=== PATIENT | female | born 1950 | race Caucasian/White ===

== ENCOUNTER → 2016-10-23 | Outpatient (CLI) | payer OTHER ==
[~2016-10-23] MED LIST: ANTIBIOTIC; BACTRIM DS TAB1 EACH PO; CLARITIN10 MG PO; CLONIDINE HCL0.3 M2 PO; CLONIDINE HCL0.3 M3 PO; COMBIVENT; DILAUDID 2 MG TA2 MG PO; DILAUDID2 M1 PO; FLEXERIL; FLEXERIL PO; METHADONE HCL 110 M1 PO; METHADONE PO; METHADOSE10 MG PO; MOBIC7.5 MG PO; NABUMETONE 500500 M1 PO; NAPROXEN DELAY500 M1 PO; NEURONTIN 300300 M1 PO; NEURONTIN 300M300 M2 PO; NORCO 5-325 TA1 EACH PO; NORTRIPTYLINE H25 M3 PO; NORVASC 5 MG TAB5 MG PO; NORVASC5 M1 PO; PREDNISONE 5 MG5 M1 PO; TRAMADOL 50 MG50 MG PO; VICODIN 5-5001 EACH PO
[2016-10-23 11:37] LABS: CREATININE 0.5 mg/dL (0.6-1.0)
== END ==
LOC: CAT 10:48
PROVIDERS: Nurse Practitioner
DX: R10.9 Unspecified abdominal pain (principal); R14.0 Abdominal distension (gaseous)

== ENCOUNTER 2016-10-27 10:43 | Emergency (ER) | payer OTHER ==
[~2016-10-27] VITALS: Ht 157.5 cm; Wt 56.2 kg
[2016-10-27 11:23] LABS: ABSOLUTE NEUTROPHILS 2.8 thou/uL (1.4-8.2); BASOPHILS 0.6 % (0.0-2.0); HEMATOCRIT 43.3 % (37.0-47.0); HEMOGLOBIN 14.8 gm/dL (12.0-15.0); LYMPHOCYTES 31.8 % (24.0-44.0); MCH 34.2 pg (26.0-34.0); MCHC 34.2 g/dL (28.0-37.0); MONOCYTES 10.1 % (1.0-8.0); PLATELET COUNT 243 thou/uL (150-400); POLYS 56.5 % (36.0-66.0); RBC 4.33 mil/uL (4.20-5.00); RDW 13.6 % (10.5-14.5); WBC 4.9 thou/uL (4.0-11.0)
[2016-10-27 11:31] LABS: MANUAL DIFF NO
[2016-10-27 11:33] LABS: CALCIUM 9.8 mg/dL (8.5-10.1); CREATININE 0.5 mg/dL (0.6-1.0); POTASSIUM 3.8 mmol/L (3.5-5.1)
[2016-10-27 11:37] LABS: ALBUMIN 3.8 g/dL (3.4-5.0); TOTAL BILIRUBIN 0.6 mg/dL (<0.1-1.0); TOTAL PROTEIN 7.9 g/dL (6.4-8.2)
[2016-10-27 11:39] LABS: URINE BILIRUBIN NEGATIVE (Negative); URINE BLOOD NEGATIVE (Negative); URINE COLOR YELLOW; URINE GLUCOSE-RANDOM* NEGATIVE (Negative); URINE KETONES NEGATIVE (Negative); URINE NITRITE NEGATIVE (Negative); URINE PROTEIN (DIPSTICK) NEGATIVE (Negative); URINE SPECIFIC GRAVITY <= 1.005 (1.003-1.035); URINE UROBILINOGEN 0.2 E.U./dl (0.2-1.0)
[2016-10-27] MEDS ORDERED: MIRALAX17 GM PO (12:35)
== END 2016-10-27 12:53 | disposition home or self-care (01) ==
LOC: ER 10:43
PROVIDERS: Physician Assistant
DX: K59.00 Constipation, unspecified (principal); I10 Essential (primary) hypertension; J44.9 Chronic obstructive pulmonary disease, unspecified; F10.99 Alcohol use, unspecified with unspecified alcohol-induced disorder; Z87.39 Personal history of other diseases of the musculoskeletal system and connective tissue; Z98.890 Other specified postprocedural states; Z91.041 Radiographic dye allergy status

== ENCOUNTER → 2016-11-18 | Outpatient (CLI) | payer OTHER ==
[~2016-11-18] VITALS: Ht 157.5 cm; Wt 57.2 kg
[~2016-11-18] MED LIST changes: +AMITRIPTYLINE H10 M3 PO; -COMBIVENT; +COMBIVENT INH; -FLEXERIL; +HYOSCYAMINE0.125 MG PO; +MIRALAX17 GM PO; +NEURONTIN600 MG PO; +VENTOLIN HFA 1818 GM INH; +VITAMIN B-12500 MC5 SL
--- NOTE | ~2016-11-18 | S ---
[facility] [place] [address] SURGICAL PATH RPT PROCEDURE Name: MERY MERCEDES Claude Room #: REG [facility] Sabrina.#: [id number] Admission: 11/18/16 Date of : 52 Discharge: Report #: [id number] Path Case #: [id number] PATHOLOGY REPORT COLLECTION DATE: 11/18/2016 RECEIVED DATE: 11/18/2016 SUBMITTING PHYS: Dr. Arun Nelson OTHER PHYS: Dr. Deon Giraldo SPECIMEN(S) RECEIVED: A.Bx polyp at sigmoid colon x3 * * * * * * * * * * * * FINAL DIAGNOSIS: A. Polyp, at sigmoid colon x3, endoscopic biopsy: - Hyperplastic polyp. - Negative for dysplasia. PATHOLOGIST: Megan Rodas M.D. REPORT ELECTRONICALLY SIGNED BY: Megan Rodas M.D. DATE/TIME: 11/20/2016 15:43 * * * * * * * * * * * * GROSS PATHOLOGY: Received in formalin labeled "Mery Mercedes, BX of polyp sigmoid colon," are 3 segments of godoy soft tissue measuring 1.4 x 0.2 x 0.2 cm in aggregate dimensions and ranging from 0.4 to 0.5 cm in maximum dimension. The specimen is submitted entirely in cassette A1. (GUERO; 11/19/2016) CLINICAL HISTORY: Abdominal pain, celiac, constipation INITIAL CPT CODE(S): A; 54001 Professional services performed by [facility] at [facility] [place] [address] Technical services performed by [facility] at [address] [place] [address], [address], [place] [address]. [facility] [address] [place] [address] SURGICAL PATH RPT PROCEDURE Name: MERY MERCEDES Room #: REG LADY Rush#: [id number] Admission: 11/18/16 Date of : 52 Discharge: Report #: [id number] Path Case #: [id number] [address] PHONE: [phone] DIRECTOR: Leandro Lopez M.D. * * * END OF REPORT * * *
== END | disposition home or self-care (01) ==
LOC: GI 07:37
DX: Z12.11 Encounter for screening for malignant neoplasm of colon (principal); K63.5 Polyp of colon; F32.89 Other specified depressive episodes; F10.10 Alcohol abuse, uncomplicated; F41.8 Other specified anxiety disorders; J44.9 Chronic obstructive pulmonary disease, unspecified; F17.210 Nicotine dependence, cigarettes, uncomplicated; I10 Essential (primary) hypertension; Z98.890 Other specified postprocedural states
CPT/HCPCS: 62110; 62900

== ENCOUNTER 2017-06-29 14:43 | Inpatient (IN) | payer OTHER ==
[~2017-06-29] VITALS: Ht 157.5 cm; Wt 56.7 kg
--- NOTE | ~2017-06-29 | EKG ---
[place] [address] [facility] [place] [address] ELECTROCARDIOGRAM REPORT Name: MARIA INES TEJADA Room #: 353-P ADM IN M.R.#: [id number] Admission: 06/29/17 Attend Phys: Aman Garland DO Discharge: Date of : 52 Report #: [id number] THIS REPORT FOR: //name// [facility] ED Test Date: 2017-06-29 Test Time: 16:32:01 Pat Name: MARIA INES TEJADA Department: Room: [facility] Gender: F Camera Operator: SERAFIN : 1950 Requested By: Denise Mays Order Number: [id number] MD: Nathan Orozco Measurements Intervals [place] Rate: 101 P: 67 [place]: 151 QRS: 63 QRSD: 78 T: 39 QT: 385 QTc: 500 Interpretive Statements Sinus tachycardia Nonspecific ST and T wave abnormality Compared to ECG 08/20/2013 10:45:58 ST and T wave abnormality is now present Electronically Signed On 06-30-2017 9:01:56 SURFACE LAY OUT TECHNICIAN by Nathan Orozco [email or web address] <ELECTRONICALLY SIGNED> By: Nathan Orozco MD, [facility] 06/30/17 0901 163 31 Nathan Orozco MD, [facility] /EPI
--- NOTE | ~2017-06-29 | HC ---
[facility] [place] [address] CONSULTATION Name: MARIA INES TEJADA Room #: 353-P [facility] IN M.R.#: [id number] Admission: 06/29/17 Attend Phys: Aman Garland, Discharge: 07/02/17 Date of : 52 Report #: [id number] THIS REPORT FOR: //name// CC: Deon Garland CHIEF COMPLAINT: Left hip/pelvis pain. HISTORY OF PRESENT ILLNESS: The patient is a pleasant 67-year-old female who was admitted through the Emergency Department at [facility] yesterday for complaints of left hip pain status post fall. The patient reports that she fell twice yesterday, the first time being when she was getting up to answer the door as [employer] brought her food. She was able to yell for help and the solutions delivery consultant was able to come to immediate assistance. EMS was called at that time and they helped her to get back up into the chair. A little while later the patient reports she was alone in the house when she tried to get up from the chair to feed her dogs and fell a second time because of the hip pain. She was able to get her cell phone and call for help the second time as well. The patient denies any loss of consciousness or any other injuries during this fall. The patient was transported to [facility] Emergency Department where she had x-rays taken showing a left superior rami fracture. PAST MEDICAL HISTORY: Significant for alcohol abuse, frequent falls, right rib fracture, abdominal pain, constipation, depression, suicidal ideation. PAST SURGICAL HISTORY: Noncontributory. MEDICATIONS: Please see medical record. ALLERGIES: CONTRAST DYE. SOCIAL HISTORY: The patient reports that she lives alone, typically ambulates without an assistive device, although reports that she does have a walker and has used it on occasion recently due to her frequent falls secondary to vertigo. The patient is a 2-pack a day smoker and reports frequent alcohol use of 4-10 beers per day. PHYSICAL EXAMINATION: GENERAL: The patient is a well-developed, well-nourished female, in no acute distress. VITAL SIGNS: Temperature 36.4 degrees Celsius, blood pressure 148/76, pulse 105. Height 157 cm, weight 56 kg. EXTREMITIES: Bilateral lower extremities are neurovascularly intact. Tenderness to palpation to the left groin region. There is no tenderness to palpation to the proximal femur, greater trochanter, thigh or knee. Calf [place] [address] CONSULTATION Name: MARIA INES TEJADA Room #: 353-P [facility] IN M.R.#: [id number] Admission: 06/29/17 Attend Phys: Aman Garland DO Discharge: 07/02/17 Date of : 52 Report #: [id number] IMAGING: Two views of the left hip performed on 06/29/2017 show a fracture of the superior and inferior pubic rami. IMPRESSION: Left pubic rami pain secondary to fall yesterday secondary to vertigo. PLAN: We discussed the patient's diagnosis and treatment options today. At this point, I think that her fractures can be treated nonoperatively. We discussed need for followup radiographs to assess fracture healing. We also discussed that limiting the amount of smoking and alcohol consumption will help with fracture healing. The patient verbalized understanding of this. Questions were encouraged, all were answered. We will have Physical Therapy work with the patient on ambulation. We discussed the need to ambulate with a walker for assistance as she may end up needing this over the next several months. We discussed with her history of vertigo she may need a cane or a walker for balance in the future, although she may not require these from a pelvis fracture standpoint. <ELECTRONICALLY SIGNED> By: LUPE Juarez 07/09/17 1533 1314 55 LUPE Juarez /nt
[2017-06-29 14:44] VITALS: BP 167/102
[2017-06-29 16:13] LABS: URINE BILIRUBIN NEGATIVE (Negative); URINE BLOOD NEGATIVE (Negative); URINE CLARITY CLEAR; URINE COLOR YELLOW; URINE GLUCOSE-RANDOM* NEGATIVE (Negative); URINE KETONES NEGATIVE (Negative); URINE LEUKOCYTES NEGATIVE (Negative); URINE NITRITE NEGATIVE (Negative); URINE PROTEIN (DIPSTICK) NEGATIVE (Negative); URINE SPECIFIC GRAVITY <= 1.005 (1.005-1.035); URINE UROBILINOGEN 0.2 E.U./dl (0.2-1.0)
[2017-06-29 16:24] VITALS: BP 167/102
[2017-06-29 17:08] VITALS: BP 130/76
[2017-06-29 17:25] LABS: ABSOLUTE NEUTROPHILS 7.3 thou/uL (1.4-8.2); BASOPHILS 0.5 % (0.0-2.0); EOSINOPHILS 0.7 % (0.0-3.0); HEMATOCRIT 43.7 % (37.0-47.0); LYMPHOCYTES 15.8 % (24.0-44.0); MCH 33.4 pg (26.0-34.0); MCHC 34.2 g/dL (28.0-37.0); MCV 97.6 fL (80.0-100.0); MONOCYTES 4.4 % (1.0-8.0); PLATELET COUNT 288 thou/uL (150-400); POLYS 78.6 % (36.0-66.0); RBC 4.48 mil/uL (4.20-5.00); RDW 13.9 % (10.5-14.5); WBC 9.3 thou/uL (4.0-11.0)
[2017-06-29 17:37] LABS: CALCIUM 8.6 mg/dL (8.5-10.1); CREATININE 0.4 mg/dL (0.6-1.0); POTASSIUM 3.4 mmol/L (3.5-5.1)
[2017-06-29 17:44] LABS: ALBUMIN 3.4 g/dL (3.4-5.0); TOTAL BILIRUBIN 0.3 mg/dL (<0.1-1.0); TOTAL PROTEIN 7.9 g/dL (6.4-8.2)
[2017-06-29 17:46] LABS: PROTIME 9.8 Seconds (9.3-11.4)
[2017-06-29 18:05] LABS: PHOSPHORUS 4.3 mg/dL (2.5-4.9)
[2017-06-29 18:18] LABS: FOLIC ACID 19.7 ng/mL (8.6-58.9)
[2017-06-29 18:38] LABS: AMP/METHAMP Negative (Negative); BARBITURATES Negative (Negative); BENZODIAZEPINES Negative (Negative); COCAINE Negative (Negative); METHADONE Negative (Negative); OPIATES Negative (Negative); PCP Negative (Negative)
[2017-06-29 20:00] VITALS: BP 138/89
[2017-06-29 23:30] VITALS: BP 161/85
[2017-06-30 05:15] VITALS: BP 164/73
[2017-06-30 06:15] LABS: ABSOLUTE NEUTROPHILS 2.6 thou/uL (1.4-8.2); BASOPHILS 0.7 % (0.0-2.0); EOSINOPHILS 2.4 % (0.0-3.0); HEMATOCRIT 40.7 % (37.0-47.0); HEMOGLOBIN 13.9 gm/dL (12.0-15.0); LYMPHOCYTES 33.1 % (24.0-44.0); MCH 33.1 pg (26.0-34.0); MCV 97.4 fL (80.0-100.0); MONOCYTES 10.2 % (1.0-8.0); PLATELET COUNT 262 thou/uL (150-400); POLYS 53.6 % (36.0-66.0); RBC 4.18 mil/uL (4.20-5.00); RDW 13.8 % (10.5-14.5); WBC 4.8 thou/uL (4.0-11.0)
[2017-06-30 06:32] LABS: CALCIUM 8.6 mg/dL (8.5-10.1); CREATININE 0.4 mg/dL (0.6-1.0); POTASSIUM 3.4 mmol/L (3.5-5.1)
[2017-06-30 07:57] VITALS: BP 148/76
[2017-06-30 13:30] VITALS: BP 153/77
[2017-06-30 15:12] VITALS: BP 158/83
[2017-06-30 19:55] VITALS: BP 143/94
[2017-07-01] VITALS (7 sets, daily range): BP systolic 102–139; BP diastolic 59–91
[2017-07-01 06:32] LABS: CALCIUM 8.7 mg/dL (8.5-10.1); CREATININE 0.5 mg/dL (0.6-1.0); MAGNESIUM 2.1 mg/dL (1.8-2.4); PHOSPHORUS 4.2 mg/dL (2.5-4.9); POTASSIUM 3.2 mmol/L (3.5-5.1)
[2017-07-01] MEDS ORDERED: HYDROCODON-ACE1 EAC8 PO (08:42)
[2017-07-02 04:21] VITALS: BP 117/77
[2017-07-02 07:19] VITALS: BP 135/82
[2017-07-02 11:08] VITALS: BP 104/66
[2017-07-02 13:37] VITALS: BP 104/66
[2018-01-27] MEDS ORDERED: ENOXAPARIN40 MG/0.1 SUBQ (10:27)
[2018-01-27] MEDS ORDERED: NORCO 7.5-3251 EACH PO (10:29)
== END 2017-07-02 16:16 | DRG 205 ==
LOC: ER 14:43 → 3W 16:13 → EROBS 16:13 → 3W 17:08
PROVIDERS: Family Medicine; Nurse Practitioner Family
DX: S22.31XA Fracture of one rib, right side, initial encounter for closed fracture (principal); G92 Toxic encephalopathy; F10.239 Alcohol dependence with withdrawal, unspecified; E46 Unspecified protein-calorie malnutrition; S32.89XA Fracture of other parts of pelvis, initial encounter for closed fracture; I10 Essential (primary) hypertension; J44.9 Chronic obstructive pulmonary disease, unspecified; F32.9 Major depressive disorder, single episode, unspecified; Z79.899 Other long term (current) drug therapy; Z91.041 Radiographic dye allergy status; K59.00 Constipation, unspecified; F17.210 Nicotine dependence, cigarettes, uncomplicated; F10.229 Alcohol dependence with intoxication, unspecified; W18.39XA Other fall on same level, initial encounter; Z90.49 Acquired absence of other specified parts of digestive tract; Y93.89 Activity, other specified; Y92.89 Other specified places as the place of occurrence of the external cause; Y99.8 Other external cause status; Z68.22 Body mass index [BMI] 22.0-22.9, adult
CPT/HCPCS: 10879

== ENCOUNTER 2019-07-06 15:32 | Inpatient (IN) | payer OTHER ==
[~2019-07-06] VITALS: Ht 157.5 cm; Wt 51.0 kg
[~2019-07-06 15:32] MED LIST changes: +ENOXAPARIN40 MG/0.1 SUBQ; +HYDROCODON-ACE1 EAC8 PO; +NORCO 7.5-3251 EACH PO
[2019-07-06 15:33] VITALS: BP 152/105
--- NOTE | 2019-07-06 16:20 | EKG ---
[facility] [place] [address] ELECTROCARDIOGRAM REPORT Name: MARIA INES TEJADA Room #: [facility].#: [id number] Admission: Attend Phys: Discharge: Date of : 52 Report #: [id number] THIS REPORT FOR: cc: Pradeep Chapa MD, Kirk D. MD Couchonnal, Luis F. MD ~ THIS REPORT FOR: //name// [facility] ED Test Date: 2019-07-06 Test Time: 16:06:43 Pat Name: MARIA INES TEJADA Department: Room: Gender: F Biological Science Technician Fish: ISAURA : 1950 Requested By: Treasure Andrade Order Number: [id number] MD: Dewey Gonzalez Measurements Intervals [place] Rate: 109 P: 67 [place]: 172 QRS: 50 QRSD: 83 T: -7 QT: 366 QTc: 494 Interpretive Statements Sinus tachycardia Ventricular premature complex Aberrant complex Probable anteroseptal infarct, old Borderline repol abnrm, inferolateral leads Compared to ECG 01/21/2018 15:12:36 Ventricular premature complex(es) now present Aberrant conduction of supraventricular beat(s) now present Myocardial infarct finding now present ST (T wave) deviation no longer present Electronically Signed On 07-06-2019 16:20:00 HAND POTTER by Dewey Gonzalez [email or web address] <ELECTRONICALLY SIGNED> By: Dewey Gonzalez MD 07/06/19 1620 05 05 Dewey Gonzalez MD /EPI
[2019-07-06 16:35] LABS: HEMATOCRIT 43.2 % (37.0-47.0); HEMOGLOBIN 14.5 gm/dL (12.0-15.0); MCH 33.4 pg (26.0-34.0); MCHC 33.6 g/dL (28.0-37.0); MCV 99.2 fL (80.0-100.0); RBC 4.36 mil/uL (4.20-5.00); RDW 14.1 % (10.5-14.5); WBC 4.5 thou/uL (4.0-11.0)
[2019-07-06 16:59] LABS: ANION GAP 13 mmol/L (7-16); BUN 6 mg/dL (7-18); CALCIUM 9.1 mg/dL (8.5-10.1); CHLORIDE 99 mmol/L (98-107); CO2 25 mmol/L (21-32); CREATININE 0.5 mg/dL (0.6-1.0); GLUCOSE 120 mg/dL (74-106); MAGNESIUM 1.9 mg/dL (1.8-2.4); SODIUM 137 mmol/L (136-145); TROPONIN-I <0.06 ng/mL (<0.06)
[2019-07-06 18:43] LABS: TSH 0.363 uIU/mL (0.358-3.740)
[2019-07-06 19:30] VITALS: BP 141/79
[2019-07-06 20:06] VITALS: BP 150/75
[2019-07-06 20:50] VITALS: BP 150/91
[2019-07-06] MEDS ORDERED: LIPITOR 10 MG10 M1 PO (22:42)
[2019-07-06] MEDS ORDERED: MELOXICAM7.5 MG PO (22:45)
[2019-07-07 00:18] VITALS: BP 94/55
[2019-07-07 05:07] LABS: HEMATOCRIT 41.3 % (37.0-47.0); HEMOGLOBIN 13.4 gm/dL (12.0-15.0); MCHC 32.6 g/dL (28.0-37.0); MCV 101.3 fL (80.0-100.0); PLATELET COUNT 192 thou/uL (150-400); RBC 4.08 mil/uL (4.20-5.00); RDW 14.5 % (10.5-14.5); WBC 2.3 thou/uL (4.0-11.0)
[2019-07-07 05:12] VITALS: BP 104/57
[2019-07-07 05:26] LABS: CALCIUM 8.4 mg/dL (8.5-10.1); CREATININE 0.6 mg/dL (0.6-1.0); MAGNESIUM 2.3 mg/dL (1.8-2.4)
[2019-07-07 05:27] LABS: POTASSIUM 4.4 mmol/L (3.5-5.1)
[2019-07-07 07:22] VITALS: BP 133/73
--- NOTE | 2019-07-07 08:04 | NUR ---
PT MAKING PROGRESS TOWARDS GOALS. C/O HEADACHE UON ARRIVAL TO UNIT. TYLENOL GIVEN BUT PT DENIED ANY PAIN RELIEF. ULTRAM X1 GIVEN PER ORDERS. F/U, PT WAS ASLEEP. SEE CHARTING.
[2019-07-07 09:18] LABS: PLATELET ESTIMATE NORMAL
[2019-07-07 11:48] VITALS: BP 116/65
--- NOTE | 2019-07-07 15:08 | NUR ---
Met with elizabeth, she admits with COPD. Patient reports she resides at [facility] living [facility]. Patient reports all needs on one level. She has Dr Figueroa as her PCP. She has a walker and wc at home. She is in process of getting a scooter [facility] [phone] fax [phone]. Patient has a nebulizer but then says shes not sure she can fine. She has inhaler. She reports she has home oxygen but with further questioning she has an oxygen tank she has had for 4 years. She reports she used to have a concentrator in her old house, not sure were it is at this time. She has homemaker services from [employer] 3xa week, MWF. She has bus for transport from her apt complex and supportive friend. Plan home once stable and therapy evals. Patient may need home oxygen.
[2019-07-07 15:28] VITALS: BP 97/52
[2019-07-07 19:37] VITALS: BP 127/101
--- NOTE | 2019-07-07 19:50 | NUR ---
pt is A&OX3, PT is continuing o2 3L/MIN/NC and iv abx, PT'S vs and o2sat are stable, pt's CIWA scores are 2-5, pt has medications for headache and anxiety.
[2019-07-08 00:10] VITALS: BP 112/63
[2019-07-08 04:05] VITALS: BP 115/82
[2019-07-08 07:50] VITALS: BP 117/69
--- NOTE | 2019-07-08 08:59 | NUR ---
PT MAKING SLOW PROGRESS TOWARDS GOALS. C/O HEADACHE LAST NIGHT WITH NO RELIEF FROM TYLENOL DOSE. GIVEN ONE ULTRAM PER ORDERS WITH PT VOICING MILD-MODERATE RELIEF. SEE CHARTING.
[2019-07-08 15:20] VITALS: BP 142/79
--- NOTE | 2019-07-08 18:22 | NUR ---
pt is A&OX3, PT is continuing o2 3L/MIN/NC and iv abx, pt still has coughing,pt denies sob and chest pain.pt's vs are stable.
[2019-07-08 19:40] VITALS: BP 111/50
[2019-07-09] VITALS (14 sets, daily range): BP systolic 94–143; BP diastolic 53–79
[2019-07-09 05:43] LABS: CALCIUM 8.4 mg/dL (8.5-10.1); CREATININE 0.5 mg/dL (0.6-1.0); MAGNESIUM 2.3 mg/dL (1.8-2.4)
--- NOTE | 2019-07-09 08:33 | NUR ---
PT MAKING SLOW PROGRESS TOWARDS GOALS. PT HAS BEEN ABLE WITH SBA ASSIST TO MOVE SELF TO BSC AND BACK TO BED W/O ASSISTANCE. DOES STATE "I JUST DON'T FEEL GOOD."
--- NOTE | 2019-07-09 20:18 | NUR ---
pt is A&O3, PT's coughing and SOB have improved, pt is on o2 0.5L/MIN/NC, pt is continuing iv abx, but pt 's HR starts running 120-140 at 1730pm, pt'b bp 117/70 mmhg,tele strips show A-FIB, RN has called cardiology dr , new order, start diltiazem iv drip, RN has reported to next shift to keep eye on pt.
[2019-07-10] VITALS: BP 120/75
--- NOTE | 2019-07-10 07:16 | NUR ---
ASSUMED PT CARE AT 1900. PT WAS IN AFIB RVR WITH HR IN 160s; HOWEVER, BP WAS WITHIN NORMAL LIMITS. PT'S HS CLONIDINE WAS HELD BECAUSE SYSTOLIC BP WAS IN THE 90s AND PT ALREADY GOT CARDIZEM AND NORVASC. PT HR STABILIZED AROUND 23OO. CARDIZEM GTT NOW AT 10. HR IS IN THE 80s. PT IS STABLE. WILL CONTINUE TO MONITOR.
[2019-07-10 07:27] VITALS: BP 106/65
--- NOTE | 2019-07-10 09:08 | 2DMMODE ---
[facility] [place] [address] 2 D/M-MODE ECHOCARDIOGRAM Name: MARIA INES TEJADA Room #: 358-P ADM IN M.R.#: [id number] Admission: 07/06/19 Attend Phys: Jailene Clement MD Discharge: Date of : 52 Report #: [id number] THIS REPORT FOR: cc: Pradeep Chapa MD, Kirk D. MD Lammoglia, Francisco J. MD ~ APPROVED REPORT Study performed: 07/10/2019 08:30:25 EXAM: Comprehensive 2D, Doppler, and color-flow Echocardiogram Patient Location: Bedside Room #: 358 Status: routine BSA: 1.49 HR: 96 bpm BP: 106/55 mmHg Rhythm: Atrial Fibrillation Other Information Study Quality: Good Indications Short of breath, elevated BNP. Hx: COPD, HTN, ETOH and tob abuse. 2D Dimensions RVDd: 34.58 mm IVSd: 9.98 (7-11mm) LVOT Diam: 19.71 (18-24mm) LVDd: 47.79 mm PWd: 7.52 (7-11mm) Ascending Ao: 37.43 (22-36mm) LVDs: 32.76 (25-40mm) Aortic Root: 32.78 mm Volumes Left Atrial Volume (Systole) Single Plane 4CH: 35.15 mL Single Plane 2CH: 49.88 mL LA ESV Index: 31.00 mL/m2 Aortic Valve AoV Peak Andrés.: 2.19 m/s AO Peak Gr.: 19.13 mmHg LVOT Max P.59 mmHg AO Mean Gr.: 10.90 mmHg AO V2 Mean: 1.60 m/s LVOT Max V: 1.18 m/s [facility] [address] [place] [address] 2 D/M-MODE ECHOCARDIOGRAM Name: MARIA INES TEJADA Claude Room #: 358-P [facility] IN [facility].#: [id number] Admission: 07/06/19 Attend Phys: Adam Bryan Discharge: Date of : 52 Report #: [id number] AO V2 VTI: 37.38 cm JUAN Vmax: 1.65 cm2 Mitral Valve MV Decel. Time: 125.55 ms MV E Max Andrés.: 1.01 m/s Pulmonary Valve PV Peak Andrés.: 0.79 m/s PV Peak Gr.: 2.47 mmHg Tricuspid Valve TR Peak Andrés.: 2.31 m/s RAP Estimate: 5.00 mmHg TR Peak Gr.: 21.36 mmHg PA Pressure: 26.00 mmHg Left Ventricle The left ventricle is normal size. There is normal LV segmental wall motion. Mild basal septal hypertrophy is present. Left ventricular systolic function is normal. LVEF is 55-60%. This study is not technically sufficient to allow evaluation of the LV diastolic function due to atrial fibrillation. Right Ventricle The right ventricle is normal size. The right ventricular systolic function is normal. Atria Left atrium is at the upper limits of normal. The right atrium size is normal. Aortic Valve Aortic valve is moderately calcified. Moderate aortic regurgitation. There is mild valvular aortic stenosis. Calculated aortic valve area is 1.6 cm2 with maximum pressure gradient of 19 mmHg and mean pressure gradient of 11 mmHg. Mitral Valve Moderate mitral annular calcification. Trace mitral regurgitation. No evidence of mitral valve stenosis. Tricuspid Valve The tricuspid valve is normal in structure. Mild to moderate tricuspid regurgitation. Estimated PAP is 25-30mmHg. Pulmonic Valve The pulmonary valve is normal in structure. Trace pulmonic [facility] [address] [place] [address] 2 D/M-MODE ECHOCARDIOGRAM Name: MARIA INES TEJADA Room #: 358-P ADM IN M.R.#: [id number] Admission: 07/06/19 Attend Phys: Adam Bryan Discharge: Date of : 52 Report #: [id number] regurgitation. Great Vessels The aortic root is normal in size. The ascending aorta is normal in size. IVC is normal in size and collapses >50% with inspiration. Pericardium There is no pericardial effusion. <Conclusion> The left ventricle is normal size. LVEF is 55-60%. Left atrium is at the upper limits of normal. Aortic valve is moderately calcified. Moderate aortic regurgitation. There is mild valvular aortic stenosis. Calculated aortic valve area is 1.6 cm2 with maximum pressure gradient of 19 mmHg and mean pressure gradient of 11 mmHg. Moderate mitral annular calcification. Trace mitral regurgitation. The tricuspid valve is normal in structure. Mild to moderate tricuspid regurgitation. Estimated PAP is 25-30mmHg. The pulmonary valve is normal in structure. Trace pulmonic regurgitation. There is no pericardial effusion. <ELECTRONICALLY SIGNED> By: Lencho Carias MD 07/10/19906 6 6 Lencho Carias MD /INF
[2019-07-10 10:04] LABS: HEMATOCRIT 43.8 % (37.0-47.0); HEMOGLOBIN 14.3 gm/dL (12.0-15.0); MCH 33.3 pg (26.0-34.0); MCHC 32.7 g/dL (28.0-37.0); MCV 101.9 fL (80.0-100.0); RBC 4.3 mil/uL (4.20-5.00); RDW 14.6 % (10.5-14.5); WBC 6.1 thou/uL (4.0-11.0)
[2019-07-10 10:15] LABS: CALCIUM 8.7 mg/dL (8.5-10.1); CREATININE 0.6 mg/dL (0.6-1.0); POTASSIUM 3.4 mmol/L (3.5-5.1)
[2019-07-10 15:32] VITALS: BP 133/68
--- NOTE | 2019-07-10 16:34 | NUR ---
SW reviewed chart and spoke with nursing and attending physician. Pt is not medically stable for discharge home today. Pt remains on cardizem gtt. Plan is for pt to discharge home when medically stable. GISELL is following to assist as needed with discharge planning.
[2019-07-10 19:19] VITALS: BP 134/78
--- NOTE | 2019-07-10 19:45 | NUR ---
PT is A&OX3, PT is continuing Diltiazem IV drip at 10mg/ 10ml/hr to keep HR < 100, pt 's hr is running at 79-99, pt is continuing o2 1-2L/MIN/NC, PT'S vs and o2sat are stable,
[2019-07-11 04:00] VITALS: BP 115/66
--- NOTE | 2019-07-11 04:33 | NUR ---
ASSUMED PT CARE AT 1900. PT IS ALERT AND ORIENTED WITH NO SIGN OF DISTRESS NOTED IN PT. FALL PRECAUTION IN PLACE. DENIES ANY PAIN. STANDBY ASSIST TO BEDSIDE COMMODE. ASSESSMENT COMPLETED AND DOCUMENTED. PT IS ON OXYGEN, SCHEDULED MEDS ADMINISTERED TO PT, TOLERATED PO INTAKE. HEART RATE CONVERTED TO NSR. STILL ON CARDIZEM DRIP. CONITNUE TO MONITOR PT. DENIES ANY FURTHER NEEDS AT THIS TIME.
[2019-07-11 05:35] LABS: HEMATOCRIT 39.5 % (37.0-47.0); HEMOGLOBIN 12.9 gm/dL (12.0-15.0); MCH 32.9 pg (26.0-34.0); MCHC 32.5 g/dL (28.0-37.0); MCV 101.1 fL (80.0-100.0); RBC 3.91 mil/uL (4.20-5.00); RDW 14.1 % (10.5-14.5); WBC 5.6 thou/uL (4.0-11.0)
[2019-07-11 06:28] LABS: CALCIUM 8.6 mg/dL (8.5-10.1); CREATININE 0.5 mg/dL (0.6-1.0)
[2019-07-11 08:10] VITALS: BP 117/59
--- NOTE | 2019-07-11 14:33 | NUR ---
SW reviewed chart and spoke with nursing and attending physician. Pt is progressing towards goals for discharge. Discharge home is anticipated for tomorrow. SW is following to assist as needed with discharge planning.
[2019-07-11 16:40] VITALS: BP 125/67
[2019-07-11 19:40] VITALS: BP 122/64
[2019-07-11 19:53] VITALS: BP 122/64
[2019-07-12 03:55] VITALS: BP 120/62
--- NOTE | 2019-07-12 06:08 | NUR ---
Pt. stated she slept fair during the night. She requested lorazepam prn to help her calm down with good result. C/O headache which she said she had for 3 weeks but refused to take tylenol or Ibuprofen. Maintaining O2 sat in the low 90's on 2L/NC and she does get short of breath with exertion. Up with SBA to commode. Bed alarm on for safety. Weakness she stated is getting better. Making pogress towards care plan goals.
[2019-07-12 07:49] VITALS: BP 129/61
[2019-07-12] MEDS ORDERED: ELIQUIS5 MG PO (09:00)
[2019-07-12] MEDS ORDERED: CARDIZEM CD 18180 M3 PO (09:00)
[2019-07-12] MEDS ORDERED: TAMBOCOR 100 M100 M1 PO (09:00)
[2019-07-12] MEDS ORDERED: MUCINEX600 MG PO (14:01)
[2019-07-12] MEDS ORDERED: BENZONATATE100 MG PO (14:01)
[2019-07-12] MEDS ORDERED: CEFDINIR300 MG PO (14:02)
[2019-07-12] MEDS ORDERED: PREDNISONE 10 M10 M1 PO (14:03)
[2019-07-12 15:15] VITALS: BP 129/61
[2019-07-12 15:42] VITALS: BP 134/78
[2019-07-12 17:04] VITALS: BP 134/78
--- NOTE | 2019-07-12 17:09 | NUR ---
DISCHARGE NOTE: SW reviewed chart and spoke with nursing and attending physician. Pt is medically stable for discharge home today. Rest/exercise completed late afternoon. Pt needs home O2: 2L at rest and 6L with activity. SW met with pt and family at bedside to provide update. Pt agreeable with home O2. Options provided for DME companies. No preference voiced. Script obtained from hospitalist. GISELL sent pt's info and order to Chris. GISELL confirmed info was received with [employer]. [employer] Former Machine [employer] to deliver portable tank to pt's hospital room soon. Contact info for [employer] placed in pt's discharge summary. Pt will have transportation home. Pt to discharge after portable tank has been delivered. No additional SW needs identified at this time, but is available to assist should needs arise.
== END 2019-07-12 18:48 | disposition home or self-care (01) | DRG 193 ==
LOC: ER 15:32 → 3W 18:42 → EROBS 18:42 → 3W 20:54 → ENTRNSPT 07-12 18:03 → 3W 07-12 18:48
PROVIDERS: Emergency Medicine Emergency Medical Services; Hospitalist; Nurse Practitioner; ADMIT Hospitalist
DX: J18.9 Pneumonia, unspecified organism (principal); J96.01 Acute respiratory failure with hypoxia; J44.1 Chronic obstructive pulmonary disease with (acute) exacerbation; J44.0 Chronic obstructive pulmonary disease with (acute) lower respiratory infection; E87.6 Hypokalemia; F17.210 Nicotine dependence, cigarettes, uncomplicated; G62.9 Polyneuropathy, unspecified; I10 Essential (primary) hypertension; M54.2 Cervicalgia; G89.29 Other chronic pain; K90.0 Celiac disease; F32.9 Major depressive disorder, single episode, unspecified; R26.9 Unspecified abnormalities of gait and mobility; Z66 Do not resuscitate; R63.0 Anorexia; M19.90 Unspecified osteoarthritis, unspecified site; I35.0 Nonrheumatic aortic (valve) stenosis; I48.0 Paroxysmal atrial fibrillation; Z79.01 Long term (current) use of anticoagulants; Z90.89 Acquired absence of other organs; Z79.899 Other long term (current) drug therapy; Z99.81 Dependence on supplemental oxygen; Z86.19 Personal history of other infectious and parasitic diseases; Z91.041 Radiographic dye allergy status; Z68.20 Body mass index [BMI] 20.0-20.9, adult
CPT/HCPCS: 10879

== ENCOUNTER 2020-01-09 06:37 | Emergency (ER) | payer OTHER ==
[~2020-01-09] VITALS: Ht 157.5 cm; Wt 53.1 kg
[~2020-01-09 06:37] MED LIST changes: +BENZONATATE100 MG PO; +CARDIZEM CD 18180 M3 PO; +CEFDINIR300 MG PO; +ELIQUIS5 MG PO; +LIPITOR 10 MG10 M1 PO; +MELOXICAM7.5 MG PO; +MUCINEX600 MG PO; +PREDNISONE 10 M10 M1 PO; +TAMBOCOR 100 M100 M1 PO
[2020-01-09 06:54] LABS: BASOPHILS 0.3 % (0.0-2.0); EOSINOPHILS 0.6 % (0.0-3.0); HEMATOCRIT 42.8 % (37.0-47.0); HEMOGLOBIN 14.9 gm/dL (12.0-15.0); LYMPHOCYTES 10.3 % (24.0-44.0); MCH 35.3 pg (26.0-34.0); MCHC 34.9 g/dL (28.0-37.0); MCV 101.1 fL (80.0-100.0); MONOCYTES 7.8 % (1.0-8.0); PLATELET COUNT 244 thou/uL (150-400); RBC 4.23 mil/uL (4.20-5.00); RDW 14.9 % (10.5-14.5); WBC 8.6 thou/uL (4.0-11.0)
[2020-01-09 06:59] LABS: CALCIUM 8.7 mg/dL (8.5-10.1); CREATININE 0.6 mg/dL (0.6-1.0)
[2020-01-09 07:06] LABS: APTT 25.8 Seconds (24.5-32.8); PROTIME 10.3 Seconds (9.3-11.4)
[2020-01-09 10:11] VITALS: BP 146/65
== END 2020-01-09 10:11 | disposition home or self-care (01) ==
LOC: ER 06:37
PROVIDERS: Emergency Medicine
DX: S00.03XA Contusion of scalp, initial encounter (principal); M25.552 Pain in left hip; M25.551 Pain in right hip; J44.9 Chronic obstructive pulmonary disease, unspecified; I10 Essential (primary) hypertension; F32.9 Major depressive disorder, single episode, unspecified; G62.9 Polyneuropathy, unspecified; F17.210 Nicotine dependence, cigarettes, uncomplicated; Z90.89 Acquired absence of other organs; Z98.51 Tubal ligation status; Z79.899 Other long term (current) drug therapy; Z79.2 Long term (current) use of antibiotics; Z91.041 Radiographic dye allergy status; W18.09XA Striking against other object with subsequent fall, initial encounter; Y93.01 Activity, walking, marching and hiking; Y92.098 Other place in other non-institutional residence as the place of occurrence of the external cause; Y99.8 Other external cause status

== ENCOUNTER 2020-06-08 13:25 | Inpatient (IN) | payer OTHER ==
[~2020-06-08] VITALS: Ht 157.5 cm; Wt 54.4 kg
[2020-06-08 13:49] LABS: ABSOLUTE NEUTROPHILS 9.5 thou/uL (1.4-8.2); BASOPHILS 0.2 % (0.0-2.0); EOSINOPHILS 0.2 % (0.0-3.0); HEMATOCRIT 39.4 % (37.0-47.0); HEMOGLOBIN 12.8 gm/dL (12.0-15.0); LYMPHOCYTES 8.6 % (24.0-44.0); MCHC 32.4 g/dL (28.0-37.0); MONOCYTES 6.3 % (1.0-8.0); PLATELET COUNT 275 thou/uL (150-400); POLYS 84.7 % (36.0-66.0); RBC 3.75 mil/uL (4.20-5.00); RDW 14.3 % (10.5-14.5); WBC 11.2 thou/uL (4.0-11.0)
[2020-06-08 14:02] LABS: CALCIUM 8.7 mg/dL (8.5-10.1); CREATININE 0.5 mg/dL (0.6-1.0); POTASSIUM 4.2 mmol/L (3.5-5.1); TROPONIN-I 0.37 ng/mL (<0.06)
[2020-06-08 14:04] LABS: INR 1.1; PROTIME 11.2 Seconds (9.3-11.4)
[2020-06-08 15:37] LABS: BE(vivo) 1.5 mmol/L (-2 to +3); HCO3 26.1 mmol/L (22.0-26.0); PO2 93.2 mmHg (80.0-100.0); pH 7.421 (7.360-7.450); sO2 97.3 % (92.0-98.0)
[2020-06-08 19:12] VITALS: BP 133/74
[2020-06-08] MEDS ORDERED: ATORVASTATIN CA20 MG PO (19:31)
[2020-06-08] MEDS ORDERED: NEURONTIN 300M300 M2 PO (19:31)
[2020-06-08] MEDS ORDERED: AMITRIPTYLINE H10 M1 PO (19:33)
[2020-06-08] MEDS ORDERED: CLONIDINE HCL0.3 M2 PO (19:34)
[2020-06-08] MEDS ORDERED: DILTIAZEM 24HR180 M1 PO (19:34)
[2020-06-08 20:48] VITALS: BP 142/82
--- NOTE | 2020-06-08 22:29 | NUR ---
This RN spoke to Ernesto and Yaquelin concening EKG. Ernesto reports to give patient aspirin, hold eliquis, and administer 1 inch of nitro paste after reviewing EKG. Cardiology reports pt is not a candidate for cath at this time due to the fact that patient had eliquis today.
[2020-06-09 07:37] LABS: HEMATOCRIT 37.9 % (37.0-47.0); HEMOGLOBIN 12.5 gm/dL (12.0-15.0); MCH 34.6 pg (26.0-34.0); MCHC 32.9 g/dL (28.0-37.0); MCV 105.2 fL (80.0-100.0); RBC 3.6 mil/uL (4.20-5.00); RDW 14.6 % (10.5-14.5); WBC 5.7 thou/uL (4.0-11.0)
[2020-06-09 07:51] LABS: ALBUMIN 2.8 g/dL (3.4-5.0); ANION GAP 10 mmol/L (7-16); BUN 11 mg/dL (7-18); CALCIUM 8.6 mg/dL (8.5-10.1); CHLORIDE 98 mmol/L (98-107); CHOLESTEROL 143 mg/dL (<200); CO2 26 mmol/L (21-32); CREATININE 0.7 mg/dL (0.6-1.0); GLUCOSE 207 mg/dL (74-106); HDL CHOLESTEROL 107 mg/dL (>40); LDL CHOLESTEROL 29 mg/dL (<100); POTASSIUM 3.8 mmol/L (3.5-5.1); SGOT 24 U/L (15-37); SGPT 29 U/L (30-65); SODIUM 134 mmol/L (136-145); TC:HDL 1.3 Ratio (Not establshd); TOTAL BILIRUBIN 0.7 mg/dL (0.2-1.0); TOTAL PROTEIN 7.2 g/dL (6.4-8.2); TRIGLYCERIDE 35 mg/dL (<150); TROPONIN-I 0.16 ng/mL (<0.06); VLDL 7 mg/dL (<40)
--- NOTE | 2020-06-09 12:44 | EKG ---
[place] [address] [facility] [place] [address] ELECTROCARDIOGRAM REPORT Name: MARIA INES TEJADA Room #: 170-16 ADM IN M.R.#: [id number] Admission: 06/08/20 Attend Phys: Mayo Muñoz MD Discharge: Date of : 52 Report #: [id number] [facility] ED Test Date: 2020-06-08 Test Time: 13:28:31 Pat Name: MARIA INES TEJADA Department: Room: 170 Gender: F Milling Machine Operator Gear: KK : 1950 Requested By: Sheree Fierro Order Number: [id number] MD: Nathan Orozco Measurements Intervals [place] Rate: 123 P: 225 [place]: 92 QRS: -50 QRSD: 133 T: 99 QT: 420 QTc: 601 Interpretive Statements Sinus tachycardia Nonspecific IVCD with LAD LVH with secondary repolarization abnormality Anterior Q waves, possibly due to LVH Right ventricular conduction delay Compared to ECG 07/06/2019 16:06:43 Intraventricular conduction delay now present Electronically Signed On 06-09-2020 12:44:29 DIGITAL CAMPAIGN MANAGER by Nathan Orozco [email or web address] <ELECTRONICALLY SIGNED> By: Nathan Orozco MD, [facility] 06/09/20 1244 1328 1328 Nathan Orozco MD, [facility] /EPI
--- NOTE | 2020-06-09 12:47 | EKG ---
[place] [address] [facility] [place] [address] ELECTROCARDIOGRAM REPORT Name: MARIA INES TEJADA Room #: 170-16 ADM IN M.R.#: [id number] Admission: 06/08/20 Attend Phys: Mayo Muñoz MD Discharge: Date of : 52 Report #: [id number] [facility] ED Test Date: 2020-06-08 Test Time: 21:26:46 Pat Name: MARIA INES TEJADA Department: Room: 170 Gender: F Paradichlorobenzene Tender: MPARK : 1950 Requested By: Mayo Muñoz Order Number: [id number] MD: Nathan Orozco Measurements Intervals [place] Rate: 93 P: 0 MT: 184 QRS: -28 QRSD: 107 T: 117 QT: 542 QTc: 675 Interpretive Statements Sinus rhythm Biatrial enlargement Abnormal R-wave progression, late transition LVH w/ repol abnormalities, possible ischemia Anterior T wave abnormality, consider ischemia Prolonged QT interval Compared to ECG 06/08/2020 13:28:31 T wave abnormality is now present QT interval has lengthened Electronically Signed On 06-09-2020 12:47:35 OFFICE EQUIPMENT MECHANIC by Nathan Orozco [email or web address] <ELECTRONICALLY SIGNED> By: Nathan Orozco MD, [facility] 06/09/20 1247 25 25 Nathan Orozco MD, [facility] /EPI
--- NOTE | 2020-06-09 12:54 | EKG ---
[place] [address] [facility] [place] [address] ELECTROCARDIOGRAM REPORT Name: MARIA INES TEJADA Room #: 170-16 ADM IN M.R.#: [id number] Admission: 06/08/20 Attend Phys: Mayo Muñoz MD Discharge: Date of : 52 Report #: [id number] [facility] ED Test Date: 2020-06-09 Test Time: 11:45:51 Pat Name: MARIA INES TEJADA Department: Room: 170 Gender: F Intermediate Card Tender: esheets : 1950 Requested By: Mayo Muñoz Order Number: [id number] MD: Nathan Orozco Measurements Intervals [place] Rate: 94 P: 62 [place]: 187 QRS: -4 QRSD: 98 T: 136 QT: 384 QTc: 481 Interpretive Statements Sinus rhythm Biatrial abnormality LVH with secondary repolarization abnormality Anterior Q waves, possibly due to LVH Anterior T wave abnormality consider ischemia Prolonged QT interval Compared to ECG 06/08/2020 21:26:46 No significant change was found Electronically Signed On 06-09-2020 12:53:49 SEARCH MARKETING ANALYST by Nathan Orozco [email or web address] <ELECTRONICALLY SIGNED> By: Nathan Orozco MD, [facility] 06/09/20 1253 1145 1145 Nathan Orozco MD, [facility] /EPI
[2020-06-09 13:49] VITALS: BP 133/71
[2020-06-09 20:32] VITALS: BP 158/88
[2020-06-09 20:44] VITALS: BP 136/65
[2020-06-09 21:30] VITALS: BP 139/82
[2020-06-10 04:55] VITALS: BP 135/63
--- NOTE | 2020-06-10 06:23 | NUR ---
PATIENTS CARES WERE ASSUMED AT THE TRANSFER FROM ER. PATIENT WAS ASSESSED AND MEDS WERE PASSED. PATIENT SPENT THE FIRST 24 HOURS IN THE ER BEFORE COMING TO THE FLOORPSTIENT CAME IN WITH CHEST PAIN HOWEVER WHILE DOING HER ADMISSION PATIENT STATES SHE SMOKES UP TO TWO PACKS A DAY. SHE STATED SHE HAS TRIED SEVERAL TIME TO QUITE. PATIENT HAS A CONGESTED COUGH AND LUNG SOUNDS ARE COURSE THROUGH OUT. HOURLY ROUNDS WERE DONE. THE BED IS IN A LOW AND LOCKED POSITION.
[2020-06-10 06:59] LABS: HEMATOCRIT 36.1 % (37.0-47.0); HEMOGLOBIN 12.1 gm/dL (12.0-15.0); MCH 34.9 pg (26.0-34.0); MCHC 33.7 g/dL (28.0-37.0); MCV 103.8 fL (80.0-100.0); RBC 3.48 mil/uL (4.20-5.00); RDW 14.3 % (10.5-14.5); WBC 14.4 thou/uL (4.0-11.0)
[2020-06-10 07:18] LABS: CALCIUM 9.3 mg/dL (8.5-10.1); CREATININE 0.5 mg/dL (0.6-1.0); POTASSIUM 3.5 mmol/L (3.5-5.1)
--- NOTE | 2020-06-10 07:25 | EKG ---
[address] [place] [address] ELECTROCARDIOGRAM REPORT Name: MARIA INES TEJADA Room #: 209-P ADM IN M.R.#: [id number] Admission: 06/08/20 Attend Phys: Mayo Muñoz MD Discharge: Date of : 52 Report #: [id number] [facility] Test Date: 2020-06-10 Test Time: 07:20:32 Pat Name: MARIA INES TEJADA Department: Room: 209 P Gender: F Senior Unix Administrator: PAVITHRA : 1950 Requested By: Nathan Orozco Order Number: [id number] MD: Aleksandar Early Measurements Intervals [place] Rate: 93 P: 76 [place]: 187 QRS: -5 QRSD: 105 T: 154 QT: 458 QTc: 570 Interpretive Statements Sinus rhythm Left atrial enlargement Anterior Q waves, possibly due to LVH LVH w/ repol abnormalities, possible ischemia Prolonged QT interval Compared to ECG 06/09/2020 11:45:51 Atrial abnormality now present Early repolarization no longer present T-wave abnormality no longer present Possible ischemia still present Electronically Signed On 06-10-2020 7:25:45 NUT STEAMER by Aleksandar Early [email or web address] <ELECTRONICALLY SIGNED> By: Aleksandar Early MD, [facility] 06/10/20724 9 9 Aleksandar Early MD, [facility] /EPI
[2020-06-10 07:30] VITALS: BP 135/75
--- NOTE | 2020-06-10 09:30 | 2DMMODE ---
[facility] [place] [address] 2 D/M-MODE ECHOCARDIOGRAM Name: MARIA INES TEJADA Room #: 209-P ADM IN M.R.#: [id number] Admission: 06/08/20 Attend Phys: Mayo Muñoz MD Discharge: Date of : 52 Report #: [id number] THIS REPORT FOR: cc: Oskar Ro K. Steven DO Santiago, Patrick MD [facility] ~ APPROVED REPORT Study performed: 06/10/2020 08:00:40 EXAM: Comprehensive 2D, Doppler, and color-flow Echocardiogram Patient Location: In-Patient Room #: 209 Status: routine BSA: 1.55 HR: 91 bpm BP: 136/92 mmHg Other Information Study Quality: Adequate Risk Factors: Cardiac Risk Factors: Smoking, SOB Indications COPD Dyspnea Chest Pain 2D Dimensions IVSd: 11.49 (7-11mm) LVOT Diam: 19.48 (18-24mm) LVDd: 36.17 mm PWd: 8.89 (7-11mm) Ascending Ao: 34.64 (22-36mm) LVDs: 22.91 (25-40mm) Left Atrium: 46.08 (27-40mm) Aortic Root: 30.63 mm IVC: 1.90 mm LV Single Plane 4CH: 49.80 % Oliveira's LVEF: 50.00 % Volumes Left Atrial Volume (Systole) Single Plane 4CH: 39.01 mL Single Plane 2CH: 62.66 mL LA ESV Index: 42.00 mL/m2 [facility] [place] [address] 2 D/M-MODE ECHOCARDIOGRAM Name: MARIA INES TEJADA Room #: 209-P ADM IN .R.#: [id number] Admission: 06/08/20 Attend Phys: Mayo Muñoz MD Discharge: Date of : 52 Report #: [id number] Aortic Valve AoV Peak Andrés.: 2.71 m/s AO Peak Gr.: 29.46 mmHg LVOT Max P.91 mmHg AO Mean Gr.: 14.75 mmHg LVOT Mean P.65 mmHg AO V2 Mean: 1.75 m/s LVOT Max V: 1.31 m/s AO V2 VTI: 53.15 cm LVOT Mean V: 0.92 m/s JUAN (VTI): 1.44 cm2 LVOT V1 VTI: 25.69 cm JUAN Vmax: 1.44 cm2 AI Vmax: 3.63 m/s SV (LVOT): 76.58 mL AI Mohave: 4.02 m/s2 AI PHT: 262.75 ms Mitral Valve MV Peak Gr.: 10.04 mmHg MV Mean Gr.: 3.59 mmHg E/A Ratio: 1.1 MV Decel. Time: 113.06 ms MV E Max Andrés.: 1.52 m/s MV A Andrés.: 1.40 m/s MV Max Andrés.: 1.58 m/s MV Mean Andrés.: 0.79 m/s MV VTI: 406.20 mm MVA VTI: 188.52 mm2 MV PHT: 32.79 ms TDI E/Lateral E': 15.20 Lateral E' Andrés.: 0.10 m/s Pulmonary Valve PV Peak Andrés.: 1.08 m/s PV Peak Gr.: 4.67 mmHg MD End Vmax: 1.97 m/s Pulmonary Vein P Vein S: 0.70 m/s P Vein A: 0.19 m/s P Vein D: 0.50 m/s P Vein A Dur.: 73.8 msec P Vein S/D Ratio: 1.40 Tricuspid Valve TR Peak Andrés.: 4.04 m/s RAP Estimate: 10.00 mmHg TR Peak Gr.: 65.32 mmHg RVSP: 75.00 mmHg Left Ventricle The left ventricle is normal size. Regional wall motion abnormalities are noted. Sigmoid septum is present. Left ventricular systolic function is borderline. LVEF is 50-55%. [place] [address] 2 D/M-MODE ECHOCARDIOGRAM Name: MARIA INES TEJADA Claude Room #: 209-P ADM IN M.R.#: [id number] Admission: 06/08/20 Attend Phys: Mayo Muñoz MD Discharge: Date of : 52 Report #: [id number] Right Ventricle The right ventricle is normal size. The right ventricular systolic function is normal. Atria Left atrium is moderately dilated. The right atrium size is normal. Aortic Valve Mild aortic valve sclerosis. Mild to moderate aortic regurgitation. Moderate aortic stenosis. Calculated JUAN by the continuity equation is 1.4 cm2. Mitral Valve Mitral valve leaflets are moderately thickened. Mild mitral regurgitation. No evidence of mitral valve stenosis. Tricuspid Valve The tricuspid valve is normal in structure. Moderate tricuspid regurgitation. The RVSP is >60 mmHg. Moderate pulmonary hypertension. Pulmonic Valve Pulmonic valve is not well visualized. Mild pulmonic regurgitation. Great Vessels Aortic root is dilated. IVC is normal in size and collapses <50% with inspiration. Pericardium There is no pericardial effusion. <Conclusion> Normal left ventricular size/wall thickness Moderate mid- anteroapical and distal septal hypokinesis, apex almost akinetic EF-50% Normal right ventricular size/function Moderate left atrial enlargement Mild aortic valve calcification/trileaflet Mildmoderate aortic valve stenosis, mean gradient estimated at 15 mmHg, aortic valve area of 1.4 cm Mild tricuspid valve insufficiency [facility] [address] [place] [address] 2 D/M-MODE ECHOCARDIOGRAM Name: MARIA INES TEJADA Claude Room #: 209-P [facility] IN M.R.#: [id number] Admission: 06/08/20 Attend Phys: Mayo Muñoz MD Discharge: Date of : 52 Report #: [id number] Pulmonary systolic pressure estimated at 60 mmHg No pericardial effusion <ELECTRONICALLY SIGNED> By: Aleksandar Early MD, FACC 06/10/20929 9 9 Aleksandar Early MD, FAC /INF
--- NOTE | 2020-06-10 13:43 | CATHLAB ---
[facility] [place] [address] INVASIVE PROCEDURE REPORT Name: MERY TEJADA Room #: 209-P ADM IN M.R.#: [id number] Admission: 06/08/20 Attend Phys: Mayo Muñoz MD Discharge: Date of : 52 Report #: [id number] THIS REPORT FOR: cc: Oskar Ro K. Steven DO Park, Jin S. MD ~ APPROVED REPORT Study performed: 06/10/2020 12:05:52 Patient Details Patient Status: In-Patient Room #: The patient is a 70 year-old female Event Personnel Bronson Greenberg Corporate Pilot, Peter Moon RN, Delvis, Peggy Monitor, Mery Wesley RTR, CONSULTING SOLUTION DIRECTOR Scrub Procedures Performed Art Access - R femoral artery* [id number] Initial Mod Sed Same Phys/QHP Gr5y [id number] Left Heart Cath w/or w/o Coronaries [id number] LHC Hemostasis w/ Mynx Indication Non-STEMI , Dyspnea, Chest pain Risk Factors Chronic Lung DiseaseHypercholesterolemia, Coronary Artery DiseaseHypertension, Tobacco History () Procedure Narrative The patient was brought urgently to the Cardiac Catheterization Laboratory and was prepped and draped in a sterile manner. The Right Groin^ was infiltrated with 1% Lidocaine subcutaneous anesthesia. A PINNACLE 4FR Sheath #[id number] sheath was inserted into the RFA^. Coronary angiography was performed using coronary diagnostic catheters. The right coronary system was accessed and visualized with a JR 4 catheter. The left coronary system was accessed and visualized with a JL 4 catheter. The left ventricle was accessed and visualized with a Pigtail catheter. Left ventricular/Aortic Valve gradient assessed via catheter pullback. Left ventriculogram was performed in HAGEN projection. Hemostasis was obtained with manual pressure following sheath removal without any complications. The patient tolerated the procedure well and there were no complications [facility] [address] [place] [address] INVASIVE PROCEDURE REPORT Name: MERY TEJADA Room #: 209-P [facility] IN M.R.#: [id number] Admission: 06/08/20 Attend Phys: Mayo Muñoz MD Discharge: Date of : 52 Report #: [id number] associated with the procedure. There was no hematoma. Intraoperative Conscious Sedation Sedation start time: 12:43 Case end Time: 13:07 Fentanyl 100 mcg Versed 2 mg Fluoro Time: 6.10 minutes Dose: DAP 4198.00 cGycm2 394 mGy Contrast Type and Amount: Visipaque 85 ml Coronary Angiography The patient's coronary anatomy is right dominant. Diagnostic Cath Left Main The left main artery is a large-caliber vessel, patent with no flow-limiting lesions. LAD The LAD is a moderate to large caliber vessel, traverses the anterior wall and wraps around the apex. There is a borderline stenosis with calcification in the proximal segment, 50 to 60%. Diagonal 1 There is a moderate-sized caliber vessel, patent with no flow-limiting lesions. Circumflex The left circumflex artery is a moderate-sized caliber vessel, with mild disease in the midsegment, less than 20%. OM1 This is a moderate-sized caliber vessel, traverses the lateral wall and reaches the apex. There is mild disease with calcification in the proximal segment, 30%. OM2 This is a small to moderate-sized caliber vessel, patent with no flow-limiting lesions. Right Coronary The RCA is a moderate to large caliber vessel, dominant with moderate disease in the midsegment, 50%. R PDA There is a moderate-sized caliber vessel, patent with no flow-limiting lesions. RPLV There is a moderate-sized caliber vessel, patent with no flow-limiting lesions. Left Ventriculography The left ventricle is normal in size with normal contractility. The left ventricular ejection fraction is estimated to be 55-60%. Hemodynamics The aortic pressure is 124/73 mmHg with a mean of 95 mmHg. The left ventricular pressure is 135/15 mmHg with a mean of mmHg. The left ventricular end diastolic pressure is 30 mmHg. [facility] [address] [place] [address] INVASIVE PROCEDURE REPORT Name: MERY TEJADA Room #: 209-P ADM IN M.R.#: [id number] Admission: 06/08/20 Attend Phys: Mayo Muñoz MD Discharge: Date of : 52 Report #: [id number] Conclusion 1. There is a borderline stenosis in the proximal LAD. Recommend stress testing to rule out ischemia. 2. There is a moderate stenosis in the RCA. 3. There is mild disease in OM1 vessel. 4. There is normal LV systolic function. 5. Recommend guideline directed medical therapy and aggressive risk factor management. <ELECTRONICALLY SIGNED> By: Bronson Greenberg MD 06/10/20 1343 1343 1343 Bronson Greenberg MD /INF
[2020-06-10 16:00] VITALS: BP 123/57
--- NOTE | 2020-06-10 17:49 | NUR ---
ASSUMED CARE PT SHIFT GIA. ASSESSMETNS CHARTED.MEDS GIVEN. O2 SATS WNL 2L. DENIES SOB. C/O PAIN MANAGED WITH IV PAIN MEDS. CATH PROCEDURE NO INTERVENTION. DC ONCE MEDICALLY STABLE. DENIES NEEDS. WILL PASS ON REPORT TO STEVIE RN.
[2020-06-10 21:23] VITALS: BP 140/69
[2020-06-11] VITALS (7 sets, daily range): BP systolic 136–152; BP diastolic 69–78
--- NOTE | 2020-06-11 05:32 | NUR ---
PATIENTS CARES WERE ASSUMED AT SHIFT CHANGE. PATIENT WAS ASSESSED AND MEDS WERE PASSED. NEW IV'S X2 WERE PLACED THIS SHIFT. PATIENT WAS ABLE TO SLEEP THE MAJORITY OF THIS SHIFT, HOURLY ROUNDS WERE MADE. THE BED IS IN A LOW AND LOCKED POSITION.
[2020-06-11 06:51] LABS: HEMATOCRIT 34.6 % (37.0-47.0); HEMOGLOBIN 11.4 gm/dL (12.0-15.0); MCH 34.6 pg (26.0-34.0); MCV 104.6 fL (80.0-100.0); RBC 3.31 mil/uL (4.20-5.00); RDW 14.3 % (10.5-14.5); WBC 13.8 thou/uL (4.0-11.0)
[2020-06-11 07:29] LABS: CALCIUM 8.7 mg/dL (8.5-10.1); CREATININE 0.6 mg/dL (0.6-1.0); POTASSIUM 3.6 mmol/L (3.5-5.1)
--- NOTE | 2020-06-11 11:46 | EKG ---
[address] [address] ELECTROCARDIOGRAM REPORT Name: MARIA INES TEJADA Room #: 209- ADM IN M.R.#: [id number] Admission: 06/08/20 Attend Phys: Mayo Muñoz MD Discharge: Date of : 52 Report #: [id number] [facility] Test Date: 2020-06-11 Test Time: 09:43:46 Pat Name: MARIA INES TEJADA Department: Room: 209 P Gender: F Straight Slicing Machine Operator: HIRAM : 1950 Requested By: Yolis Dexter Order Number: [id number] MD: Aleksandar Early Measurements Intervals [place] Rate: 87 P: 41 MN: 186 QRS: -21 QRSD: 110 T: 154 QT: 467 QTc: 562 Interpretive Statements Sinus rhythm Borderline left axis deviation Abnrm T, consider ischemia, anterolateral lds Prolonged QT interval Compared to ECG 06/10/2020 07:20:32 Atrial abnormality no longer present Left ventricular hypertrophy no longer present Q waves no longer present Possible ischemia still present Electronically Signed On 06-11-2020 11:45:56 TRAVEL COUNSELOR by Aleksandar Early [email or web address] <ELECTRONICALLY SIGNED> By: Aleksandar Early MD, FAC 06/11/20 1145 0943 0943 Aleksandar Early MD, [facility] /EPI
--- NOTE | 2020-06-11 11:47 | NUR ---
Case opened to follow for dc planning. Pt known to cm from previous admission last year. Service Assistant visited with her at bedside. She is a&ox4 and indicates she is waiting for cardilogy to see if she needs stenting. She is also being seen by ST for bedside eval and recommendation for thickened liquids. Video swallow ordered but on hold today due to dizziness. The pt declined PT eval this am. She reports that she still lives in a low income handicapp sr apt at [facility]. She is indep with transfers from bed to her scooter and to the toilet. She has hx of COPD with home o2 per [employer]. She uses 2liters at rest and 4-6 with activity. She has homemaker services several days a week per [facility] thru her [place] medicaid HBC[place] program MWF 10am to 2pm. She has requested an RN as well through this program to help with her medication mngt and pill box setup. Her son Rajiv confirmed to be her emergency contact. She denies any need for hh f/u at this time and feels she gets what she needs per [facility]. She reports her niece can take her home when ready. She denies any dc planning needs at this time. She has needed dme in place at home. Will follow along should dc needs arise.
--- NOTE | 2020-06-11 15:54 | NUR ---
PT ALERT AND ORIENTED TIMES FOUR. VSS. MOHAN TO DD, SR ON TELE. PT C/O HEADACHE PRN PAIN MEDICATIONS GIVEN WITH SOME RELEIF. PT TOLERATES MEDS AND MEALS. PT SLOWLY PROGRESSING TOWRADS POC GOALS.
--- NOTE | 2020-06-12 01:52 | NUR ---
PATIENTS CARES WERE ASSUMED AT SHIFT CHANGE. PATIENT WAS ASSESSED AND MEDS WERE PASSED. PATIENT,S IV WAS INFELTRATED ON ASSESSMENT. APPLIED MOIST HEAT FOR TWENTY MINUTES THEN APPLIED ICE PACK FOR TWENTY MINUTES. NO IV ACCESS AT THIS TIME. PATIENT REFUSED NURSING TO RESTART. DEPENDING ON HER PLAN OF CARE AND DISCHARGE PATIENT MAY NEED A MIDLINE OR A PICC PLACEMENT. HOURLY ROUNDS WERE DONE. THE BED IS IN A LOW AND LOCKED POSITION
[2020-06-12 03:26] VITALS: BP 147/75
[2020-06-12 07:17] VITALS: BP 150/84
--- NOTE | 2020-06-12 10:29 | NUR ---
LONG AM DISCUSSION WITH PATIENT, FOUND OUT SHE LOST HER ONLY CHILD TO A DRUG OVERDOSE, SLIGHTLY TEARY EYED BUT SEEMED TO TAKE THE EDGE OFF OF HER AND HER NONCOMPLIANCE ISSUES IMPROVED AFTER WE SPENT TIME WITH HER THIS AM. BARREL CHESTED AND LEANS OVER ALL THE TIME IN ORDER TO BREATHE BETTER. POST CATH SITE IS C,D,I WITH NO ISSUES. DENIES "CARDIAC TYPE CHEST PAIN", MORE LIKE RIB PAIN FROM "COUGHING SO HARD". DR ROHIT WATTON HER, LASIC WAS CHANGED FROM IV TO PO WE DO NOT HAVE IV ACCESS AT PRESENT-SHE IS REFUSING SUCH.
[2020-06-12 11:04] VITALS: BP 129/71
[2020-06-12 15:34] VITALS: BP 140/70
--- NOTE | 2020-06-12 16:53 | NUR ---
VAT CALLED FOR ML. PT'S LABS,MEDS,HX,REVIEWED. DISCUSSED BENEFITS AND RISK OF ML WITH PT, VERBALIZED UNDERSTANDING. SAM NICHOLSON WAS WIDELY PATENT WITH USG. 4FR POWER ML TRIMMED TO 10CM INSERTED TO 0CM WITH BRISK BR. ML RELEASED FOR IMMEDIATE USE PER PROTOCOL TO ALEJANDRO HERNANDEZ. PT TOLERATED WELL
--- NOTE | 2020-06-12 17:08 | NUR ---
MEDICATED FOR PAIN WITH IV MSO4 =9 AT THIS TIME. STATED SHE HAS A REALLY BAD HEADACHE RIGHT BETWEEN HER EYES AND POUNDING. DENIES PAIN ANYWHERE ELSE AT PRESENT. SHE IS MUCH CALMER NOW "DON'T HAVE TO WORRY ABOUT IV'S ANYMORE". PUT LOTION ON SKIN AND WRAPPED HER ARMS AND LOWER LEGS WITH VASELINE NEVILLE WRAP HER SKIN IS INCREDIBLY DRY.
[2020-06-12 20:40] VITALS: BP 141/81
[2020-06-12 23:09] VITALS: BP 159/82
[2020-06-13] VITALS (7 sets, daily range): BP systolic 136–161; BP diastolic 69–90
[2020-06-13 05:01] LABS: HEMATOCRIT 32.5 % (37.0-47.0); HEMOGLOBIN 10.9 gm/dL (12.0-15.0); MCH 35.2 pg (26.0-34.0); MCHC 33.4 g/dL (28.0-37.0); MCV 105.3 fL (80.0-100.0); RBC 3.09 mil/uL (4.20-5.00); RDW 14.3 % (10.5-14.5); WBC 7.5 thou/uL (4.0-11.0)
[2020-06-13 05:06] LABS: CALCIUM 8.6 mg/dL (8.5-10.1); CREATININE 0.5 mg/dL (0.6-1.0); MAGNESIUM 2.2 mg/dL (1.8-2.4); POTASSIUM 3.6 mmol/L (3.5-5.1)
--- NOTE | 2020-06-13 05:23 | NUR ---
Assumed pt care at 1900. A/OX4,VSS. C/o non cardiac pain/headache medicated with Morphine per request with relief reported. Murphy patent to DD with yellow urine. SR on telemetry. Calls approp for help,reports uses scooter at home. Resting quietly at this time w/o any distress noted O2 on @ 2L/NC.
[2020-06-13] MEDS ORDERED: COZAAR 50 MG TA50 M1 PO (12:11)
[2020-06-13] MEDS ORDERED: PROAIR HFA8.5 GM INH (12:11)
[2020-06-13] MEDS ORDERED: PREDNISONE 10 M10 M1 PO (12:11)
[2020-06-13] MEDS ORDERED: LASIX 20 MG TAB20 MG PO (12:11)
[2020-06-13] MEDS ORDERED: ACETAMINOPHEN325 M1 PO (12:11)
[2020-06-13] MEDS ORDERED: CEFUROXIME500 MG PO (12:11)
[2020-06-13] MEDS ORDERED: MULTAQ 400 MG400 MG PO (12:11)
[2020-06-13] MEDS ORDERED: ASPIR 8181 MG PO (12:11)
--- NOTE | 2020-06-13 12:17 | NUR ---
spoke with PT/OT patient would benefit from post acute care at discharge. She reports she is refusing. she has "[facility]" services. 3x a week for a few hours a day. Discussed concern for falling from scooter and patient reports that "was once" outside and people assisted her. She is adament to return home. She is reluctantly agreeable to home health care. She has no preference. She has transport home via her niece. DC demand planner to arrange care. Requested GISELL cuevas following.
--- NOTE | 2020-06-13 13:43 | NUR ---
HANDED OVER CARES TO LISA HERNANDEZ
--- NOTE | 2020-06-13 14:48 | NUR ---
FAXED REFERRAL TO [facility] SPOKE WITH SHRUTHI IN INTAKE THEY CAN ACCEPT FAXED DC ORDERS/SUMMARY RECEIVED CONFIRMATION AND THEY WILL ARRANGE VISITS WITH PT.
== END 2020-06-13 15:30 | disposition home health service (06) | DRG 871 ==
LOC: ER 13:25 → 2N 17:02 → EROBS 17:02 → 2N 06-09 20:45
PROVIDERS: Emergency Medicine; Internal Medicine Cardiovascular Disease; ADMIT Internal Medicine; ATTEND Internal Medicine
PROC: 4A023N7 Measurement of Cardiac Sampling and Pressure, Left Heart, Percutaneous Approach (ICD-10-PCS; principal; 2020-06-10)
PROC: B211YZZ Fluoroscopy of Multiple Coronary Arteries using Other Contrast (ICD-10-PCS; principal; 2020-06-10)
PROC: B215YZZ Fluoroscopy of Left Heart using Other Contrast (ICD-10-PCS; principal; 2020-06-10)
PROC: 05HB33Z Insertion of Infusion Device into Right Basilic Vein, Percutaneous Approach (ICD-10-PCS; 2020-06-12)
DX: A41.9 Sepsis, unspecified organism (principal); I21.4 Non-ST elevation (NSTEMI) myocardial infarction; J96.21 Acute and chronic respiratory failure with hypoxia; J18.9 Pneumonia, unspecified organism; J44.1 Chronic obstructive pulmonary disease with (acute) exacerbation; J44.0 Chronic obstructive pulmonary disease with (acute) lower respiratory infection; Z20.822 Contact with and (suspected) exposure to COVID-19; I10 Essential (primary) hypertension; F32.9 Major depressive disorder, single episode, unspecified; F17.210 Nicotine dependence, cigarettes, uncomplicated; M54.2 Cervicalgia; Z66 Do not resuscitate; K90.0 Celiac disease; B18.2 Chronic viral hepatitis C; G62.9 Polyneuropathy, unspecified; Z60.2 Problems related to living alone; I35.0 Nonrheumatic aortic (valve) stenosis; I25.10 Atherosclerotic heart disease of native coronary artery without angina pectoris; E78.5 Hyperlipidemia, unspecified; I48.0 Paroxysmal atrial fibrillation; M62.84 Sarcopenia; D53.9 Nutritional anemia, unspecified; M81.0 Age-related osteoporosis without current pathological fracture; F10.10 Alcohol abuse, uncomplicated; G89.4 Chronic pain syndrome; R07.89 Other chest pain; Z87.81 Personal history of (healed) traumatic fracture; Z91.041 Radiographic dye allergy status; Z71.6 Tobacco abuse counseling; Z79.82 Long term (current) use of aspirin; Z79.899 Other long term (current) drug therapy
CPT/HCPCS: 10081; 27000

== ENCOUNTER → 2020-07-18 | Outpatient (CLI) | payer OTHER ==
[~2020-07-18] MED LIST changes: +ACETAMINOPHEN325 M1 PO; +AMITRIPTYLINE H10 M1 PO; +ASPIR 8181 MG PO; +ATORVASTATIN CA20 MG PO; +CEFUROXIME500 MG PO; +COZAAR 50 MG TA50 M1 PO; +DILTIAZEM 24HR180 M1 PO; +LASIX 20 MG TAB20 MG PO; +MULTAQ 400 MG400 MG PO; +PROAIR HFA8.5 GM INH
== END ==
LOC: SJCVC 08:46
PROVIDERS: ATTEND Internal Medicine Cardiovascular Disease
DX: R94.31 Abnormal electrocardiogram [ECG] [EKG] (principal); I25.10 Atherosclerotic heart disease of native coronary artery without angina pectoris; I48.0 Paroxysmal atrial fibrillation; I10 Essential (primary) hypertension; J44.9 Chronic obstructive pulmonary disease, unspecified; E78.00 Pure hypercholesterolemia, unspecified; I35.0 Nonrheumatic aortic (valve) stenosis; F17.200 Nicotine dependence, unspecified, uncomplicated; Z88.8 Allergy status to other drugs, medicaments and biological substances; Z79.899 Other long term (current) drug therapy

== ENCOUNTER 2020-10-16 19:26 | Emergency (ER) | payer OTHER ==
[~2020-10-16] VITALS: Ht 157.5 cm; Wt 56.2 kg
[2020-10-16 20:48] LABS: ABSOLUTE NEUTROPHILS 4.9 thou/uL (1.4-8.2); EOSINOPHILS 2.2 % (0.0-3.0); HEMOGLOBIN 10.5 gm/dL (12.0-15.0); LYMPHOCYTES 26.3 % (24.0-44.0); MCH 29.7 pg (26.0-34.0); MCHC 32.7 g/dL (28.0-37.0); MCV 91.1 fL (80.0-100.0); PLATELET COUNT 330 thou/uL (150-400); POLYS 59.5 % (36.0-66.0); RBC 3.51 mil/uL (4.20-5.00); RDW 16.7 % (10.5-14.5); WBC 8.2 thou/uL (4.0-11.0)
[2020-10-16 20:53] LABS: ANION GAP 14 mmol/L (7-16); BUN 8 mg/dL (7-18); CALCIUM 8.4 mg/dL (8.5-10.1); CHLORIDE 95 mmol/L (98-107); CO2 21 mmol/L (21-32); CREATININE 0.4 mg/dL (0.6-1.0); GLUCOSE 89 mg/dL (74-106); POTASSIUM 3.2 mmol/L (3.5-5.1); SODIUM 130 mmol/L (136-145)
[2020-10-16 21:03] LABS: ALBUMIN 3.1 g/dL (3.4-5.0); DIRECT BILIRUBIN 0.1 mg/dL (<0.1-0.2); SGOT 19 U/L (15-37); SGPT 16 U/L (14-59); TOTAL BILIRUBIN 0.3 mg/dL (0.2-1.0); TOTAL PROTEIN 6.8 g/dL (6.4-8.2); TROPONIN-I <0.06 ng/mL (<0.06)
[2020-10-17] MEDS ORDERED: PEPCID40 MG PO (00:09)
[2020-10-17 01:25] VITALS: BP 169/70
--- NOTE | 2020-10-17 06:55 | EKG ---
[place] [address] [facility] [employer] [place] [address] ELECTROCARDIOGRAM REPORT Name: MARIA INES TEJADA Room #: [facility]#: [id number] Admission: 10/16/20 Attend Phys: Discharge: 10/17/20 Date of : 52 Report #: [id number] [facility] ED Test Date: 2020-10-16 Test Time: 19:30:11 Pat Name: MARIA INES TEJADA Department: Room: Gender: F Chief Of Hospital Medicine: VIOLETA HERNANDEZ : 1950 Requested By: Brenda Burks Order Number: [id number] MD: Aleksandar Early Measurements Intervals [place] Rate: 88 P: 44 CO: 179 QRS: 62 QRSD: 91 T: 39 QT: 433 QTc: 524 Interpretive Statements Sinus rhythm Anteroseptal infarct, age indeterminate Prolonged QT interval Compared to ECG 06/11/2020 09:43:46 Myocardial infarct finding now present Possible ischemia no longer present Electronically Signed On 10-17-2020 6:55:24 CDT by Aleksandar Early [email or web address] <ELECTRONICALLY SIGNED> By: Aleksandar Early MD, [facility] 10/17/20 0655 29 29 Aleksandar Early MD, [facility] /EPI
== END 2020-10-17 01:25 | disposition home or self-care (01) ==
LOC: ER 19:26
PROVIDERS: Emergency Medicine
DX: R07.89 Other chest pain (principal); R10.13 Epigastric pain; J44.9 Chronic obstructive pulmonary disease, unspecified; I10 Essential (primary) hypertension; G89.29 Other chronic pain; F17.210 Nicotine dependence, cigarettes, uncomplicated; F10.10 Alcohol abuse, uncomplicated; Z98.51 Tubal ligation status; Z98.890 Other specified postprocedural states; Z90.89 Acquired absence of other organs; Z91.041 Radiographic dye allergy status

== ENCOUNTER → 2020-11-12 | Outpatient (CLI) | payer OTHER ==
[~2020-11-12] MED LIST changes: +DOXYCYCLINE 10100 MG PO; +PEPCID40 MG PO
== END ==
LOC: SJCVC 09:40
PROVIDERS: ATTEND Internal Medicine Cardiovascular Disease
DX: R94.31 Abnormal electrocardiogram [ECG] [EKG] (principal); I45.4 Nonspecific intraventricular block; I25.10 Atherosclerotic heart disease of native coronary artery without angina pectoris; I49.1 Atrial premature depolarization; I49.3 Ventricular premature depolarization; E78.5 Hyperlipidemia, unspecified; I48.0 Paroxysmal atrial fibrillation; I10 Essential (primary) hypertension; E78.00 Pure hypercholesterolemia, unspecified; I35.0 Nonrheumatic aortic (valve) stenosis; J44.9 Chronic obstructive pulmonary disease, unspecified; K90.0 Celiac disease; F32.9 Major depressive disorder, single episode, unspecified; B19.20 Unspecified viral hepatitis C without hepatic coma; G62.9 Polyneuropathy, unspecified; F17.210 Nicotine dependence, cigarettes, uncomplicated; F10.10 Alcohol abuse, uncomplicated; Z88.8 Allergy status to other drugs, medicaments and biological substances; Z79.899 Other long term (current) drug therapy

== ENCOUNTER 2020-11-13 14:24 | Emergency (ER) | payer OTHER ==
[~2020-11-13] VITALS: Ht 157.5 cm; Wt 57.6 kg
[~2020-11-13 14:24] MED LIST changes: -DOXYCYCLINE 10100 MG PO
[2020-11-13 15:03] LABS: ABSOLUTE NEUTROPHILS 3.1 thou/uL (1.4-8.2); BASOPHILS 0.8 % (0.0-2.0); EOSINOPHILS 2.8 % (0.0-3.0); HEMOGLOBIN 9.4 gm/dL (12.0-15.0); LYMPHOCYTES 30.7 % (24.0-44.0); MCH 28.7 pg (26.0-34.0); MCHC 32.5 g/dL (28.0-37.0); MCV 88.2 fL (80.0-100.0); MONOCYTES 13.3 % (1.0-8.0); PLATELET COUNT 257 thou/uL (150-400); POLYS 52.4 % (36.0-66.0); RBC 3.29 mil/uL (4.20-5.00); RDW 18.7 % (10.5-14.5); WBC 5.9 thou/uL (4.0-11.0)
[2020-11-13 15:06] LABS: ANION GAP 8 mmol/L (7-16); BUN 9 mg/dL (7-18); CALCIUM 7.5 mg/dL (8.5-10.1); CHLORIDE 101 mmol/L (98-107); CO2 26 mmol/L (21-32); CREATININE 0.8 mg/dL (0.6-1.0); GLUCOSE 103 mg/dL (74-106); SODIUM 135 mmol/L (136-145)
[2020-11-13 15:16] LABS: ALBUMIN 2.6 g/dL (3.4-5.0); SGOT 31 U/L (15-37); SGPT 28 U/L (14-59); TOTAL BILIRUBIN 0.4 mg/dL (0.2-1.0); TOTAL PROTEIN 6.4 g/dL (6.4-8.2); TROPONIN-I <0.06 ng/mL (<0.06)
[2020-11-13] MEDS ORDERED: DOXYCYCLINE 10100 MG PO ×2 (17:40→17:42)
[2020-11-13 17:41] VITALS: BP 111/76
[2020-11-13] MEDS ORDERED: PREDNISONE 10 M10 M1 PO (17:45)
--- NOTE | 2020-11-14 08:23 | EKG ---
[facility] Leanne [employer] [place] [address] ELECTROCARDIOGRAM REPORT Name: MARIA INES TEJADA Room #: [facility]#: [id number] Admission: 11/13/20 Attend Phys: Discharge: 11/13/20 Date of : 52 Report #: [id number] [facility] ED Test Date: 2020-11-13 Test Time: 14:29:54 Pat Name: MARIA INES TEJADA Department: Room: Gender: F Water Server: MARTIN : 1950 Requested By: Tommy Eagle Order Number: [id number] MD: Aleksandar Early Measurements Intervals [place] Rate: 81 P: 62 HI: 182 QRS: 66 QRSD: 93 T: 55 QT: 424 QTc: 493 Interpretive Statements Sinus rhythm Probable left atrial enlargement Anteroseptal infarct, age indeterminate Compared to ECG 10/16/2020 19:30:11 Prolonged QT interval no longer present Myocardial infarct finding still present Electronically Signed On 11-14-2020 7:02:18 CDT by Aleksandar Early [email or web address] <ELECTRONICALLY SIGNED> By: Aleksandar Early MD, [facility] 06/701 142 142 Aleksandar Early MD, [facility] /EPI
== END 2020-11-13 17:45 | disposition home or self-care (01) ==
LOC: ER 14:24
PROVIDERS: Emergency Medicine
DX: J18.9 Pneumonia, unspecified organism (principal); Z20.822 Contact with and (suspected) exposure to COVID-19; F17.210 Nicotine dependence, cigarettes, uncomplicated; J44.9 Chronic obstructive pulmonary disease, unspecified; I10 Essential (primary) hypertension; I48.91 Unspecified atrial fibrillation; F10.10 Alcohol abuse, uncomplicated; G89.29 Other chronic pain; Z90.89 Acquired absence of other organs; Z98.51 Tubal ligation status; Z98.890 Other specified postprocedural states

== ENCOUNTER 2020-11-22 09:31 | Emergency (ER) | payer OTHER ==
[~2020-11-22] VITALS: Ht 157.5 cm; Wt 56.2 kg
[~2020-11-22 09:31] MED LIST changes: +DOXYCYCLINE 10100 MG PO
[2020-11-22 10:13] LABS: ABSOLUTE NEUTROPHILS 4.3 thou/uL (1.4-8.2); BASOPHILS 1.1 % (0.0-2.0); EOSINOPHILS 0.8 % (0.0-3.0); HEMATOCRIT 30.7 % (37.0-47.0); HEMOGLOBIN 10.1 gm/dL (12.0-15.0); LYMPHOCYTES 21.2 % (24.0-44.0); MCH 28.6 pg (26.0-34.0); MCHC 32.9 g/dL (28.0-37.0); MCV 87.1 fL (80.0-100.0); MONOCYTES 15.8 % (1.0-8.0); PLATELET COUNT 351 thou/uL (150-400); POLYS 61.1 % (36.0-66.0); RBC 3.52 mil/uL (4.20-5.00); RDW 19.8 % (10.5-14.5); WBC 7.1 thou/uL (4.0-11.0)
[2020-11-22 10:38] LABS: APTT 26.5 Seconds (24.5-32.8); INR 1.1; PROTIME 11.9 Seconds (10.5-12.1)
[2020-11-22 10:56] LABS: CALCIUM 8.6 mg/dL (8.5-10.1); CREATININE 0.7 mg/dL (0.6-1.0); POTASSIUM 3.4 mmol/L (3.5-5.1)
[2020-11-22 11:02] LABS: ALBUMIN 2.9 g/dL (3.4-5.0); DIRECT BILIRUBIN 0.3 mg/dL (<0.1-0.2); TOTAL BILIRUBIN 0.9 mg/dL (0.2-1.0); TOTAL PROTEIN 6.9 g/dL (6.4-8.2)
[2020-11-22 11:17] LABS: ANISOCYTOSIS 2+; PLATELET ESTIMATE NORMAL
[2020-11-22] MEDS ORDERED: LIDODERM1 EACH TRANSDERM (12:33)
[2020-11-22] MEDS ORDERED: NORCO5 PO ×2 (12:33→12:34)
[2020-11-22 14:12] VITALS: BP 127/68
== END 2020-11-22 14:13 | disposition home or self-care (01) ==
LOC: ER 09:31
PROVIDERS: Emergency Medicine
DX: S20.212A Contusion of left front wall of thorax, initial encounter (principal); S50.11XA Contusion of right forearm, initial encounter; F17.210 Nicotine dependence, cigarettes, uncomplicated; J44.9 Chronic obstructive pulmonary disease, unspecified; I10 Essential (primary) hypertension; G89.29 Other chronic pain; F10.10 Alcohol abuse, uncomplicated; I48.91 Unspecified atrial fibrillation; Z98.890 Other specified postprocedural states; Z98.51 Tubal ligation status; Z79.01 Long term (current) use of anticoagulants; V00.811A Fall from moving wheelchair (powered), initial encounter; Y93.89 Activity, other specified; Y92.89 Other specified places as the place of occurrence of the external cause; Y99.8 Other external cause status